=== PATIENT | female | born 1950 | race Caucasian/White ===

== ENCOUNTER → 2020-10-15 11:19 | Outpatient (BNVA) | payer MEDICARE, BC, SELFPAY | PROVIDERS: PCP Family Medicine; Visit Provider Internal Medicine Rheumatology | DX: M25.541 Pain in joints of right hand (principal); M25.542 Pain in joints of left hand; R51.9 Headache, unspecified; Z79.899 Other long term (current) drug therapy; Z11.59 Encounter for screening for other viral diseases; Z11.1 Encounter for screening for respiratory tuberculosis | CPT/HCPCS: 99204 ==

== ENCOUNTER 2020-10-15 13:04 | Outpatient (CLI) | payer MEDICARE, BC, SELFPAY ==
--- NOTE | 2020-10-15 13:24 | XR_ITS ---
WS: [id number] Exam: XR foot LT min 3V* [id number] Date/Time of Exam: 10/15/2020 1:48 PM Reason For Exam: Z79.899 - Other skilled nursing (current) drug therapy No fracture or dislocation noted. Degenerative changes in the midfoot joints. Calcaneal spurs. Normal soft tissues. XR/XR foot LT min 3V* [id number] IMPRESSION: 1. Mild degenerative changes. No fracture or dislocation.
--- NOTE | 2020-10-15 13:24 | XR_ITS ---
WS: [id number] Exam: XR hip LT 2-3V wo/w pel* [id number] Date/Time of Exam: 10/15/2020 1:48 PM Reason For Exam: Z79.899 - Other detention (current) drug therapy No fracture or dislocation. The joint compartment relatively well maintained. Minimal degenerative ch fahad of the acetabular rim. Normal soft tissues. XR/XR hip LT 2-3V wo/w pel* [id number] IMPRESSION: 1. Minimal degenerative change of the acetabular rim. 2. No fracture or other significant finding.
--- NOTE | 2020-10-15 13:24 | XR_ITS ---
WS: [id number] Exam: XR hand LT min 3V* [id number] Date/Time of Exam: 10/15/2020 1:48 PM Reason For Exam: Z79.899 - Other shelter (current) drug therapy No acute fracture or dislocation. Minimal degenerative changes in the IP joints. No soft tissue forei gn bodies. XR/XR hand LT min 3V* [id number] IMPRESSION: 1. Minimal degenerative changes. No fracture or other significant finding.
[2020-10-15 15:04] LABS: 25 Hydroxy Vitamin D 24 ng/mL (30-100); C Reactive Protein 7.6 mg/L (0.0-4.9)
[2020-10-15 15:12] LABS: Erythrocyte Sedimentation Rate 17 mm/hr (0-15)
[2020-10-15 15:16] LABS: Hepatitis B Core AB, Total Non-Reactive (Nonreactive); Hepatitis B Surface Antigen Non-Reactive (Nonreactive); Hepatitis C Virus Antibody Non-Reactive (Nonreactive)
[2020-10-16 13:47] LABS: Cyclic Citrullinated Peptide <16 UNITS
[2020-10-17 15:17] LABS: Quantiferon Mitogen 7.61 IU/mL; Quantiferon Nil 0.04 IU/mL; Quantiferon TB Gold NEGATIVE (NEGATIVE)
== END 2020-10-15 13:05 | disposition home or self-care (01) ==
LOC: RAD 13:17
PROVIDERS: PCP Family Medicine; Visit Provider Internal Medicine Rheumatology
DX: M19.90 Unspecified osteoarthritis, unspecified site (principal); R76.8 Other specified abnormal immunological findings in serum; Z79.899 Other long term (current) drug therapy; Z11.59 Encounter for screening for other viral diseases; Z11.1 Encounter for screening for respiratory tuberculosis
CPT/HCPCS: 36415; 73130; 73502; 73630; 82306; 85651; 86140; 86480; 86704; 86803; 87340

== ENCOUNTER → 2020-11-20 13:58 | Outpatient (BNVA) | payer MEDICARE, BC, SELFPAY | PROVIDERS: PCP Family Medicine; Visit Provider Internal Medicine Rheumatology | DX: M06.9 Rheumatoid arthritis, unspecified (principal); R51.9 Headache, unspecified; M19.90 Unspecified osteoarthritis, unspecified site; Z79.899 Other long term (current) drug therapy; Z79.52 Long term (current) use of systemic steroids | CPT/HCPCS: 99214 ==

== ENCOUNTER → 2021-06-03 14:04 | Outpatient (BNVA) | payer MEDICARE, BC, SELFPAY | PROVIDERS: PCP Family Medicine; Visit Provider Internal Medicine Rheumatology | DX: G44.89 Other headache syndrome (principal); M15.9 Polyosteoarthritis, unspecified; Z79.899 Other long term (current) drug therapy; Z79.52 Long term (current) use of systemic steroids; Z71.89 Other specified counseling; F17.200 Nicotine dependence, unspecified, uncomplicated | CPT/HCPCS: 99214 ==

== ENCOUNTER → 2021-09-08 14:23 | Outpatient (BNVA) | payer MEDICARE, BC, SELFPAY | PROVIDERS: PCP Family Medicine; Visit Provider Internal Medicine Rheumatology | DX: M31.6 Other giant cell arteritis (principal); M25.50 Pain in unspecified joint; Z79.899 Other long term (current) drug therapy; Z79.52 Long term (current) use of systemic steroids; Z71.89 Other specified counseling | CPT/HCPCS: 99214 ==

== ENCOUNTER → 2022-01-13 14:03 | Outpatient (BNVA) | payer MEDICARE, BC, SELFPAY | PROVIDERS: PCP Family Medicine; Visit Provider Internal Medicine Rheumatology | DX: Z95.5 Presence of coronary angioplasty implant and graft (principal); M31.6 Other giant cell arteritis; Z79.899 Other long term (current) drug therapy; Z71.89 Other specified counseling; M19.90 Unspecified osteoarthritis, unspecified site | CPT/HCPCS: 99204 ==

== ENCOUNTER → 2022-05-04 13:37 | Outpatient (BNVA) | payer MEDICARE, BC, SELFPAY | PROVIDERS: PCP Family Medicine; Visit Provider Internal Medicine Rheumatology | DX: G44.89 Other headache syndrome (principal); M19.90 Unspecified osteoarthritis, unspecified site; Z71.89 Other specified counseling; Z79.899 Other long term (current) drug therapy; Z79.52 Long term (current) use of systemic steroids; Z95.5 Presence of coronary angioplasty implant and graft | CPT/HCPCS: 99214 ==